=== PATIENT | male | born 1940 | race Caucasian/White ===

== ENCOUNTER 2020-07-27 17:23 | Inpatient (IN) | payer OTHER ==
[~2020-07-27] VITALS: Ht 170.2 cm; Wt 66.9 kg
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
[~2020-07-27 17:23] MED LIST: ACETAMINOPHEN325 MG PO; BACTRIM DS TAB1 EAC1 PO; CEFDINIR300 MG PO; DIVALPROEX SOD125 MG PO; GLUCERNA1 EACH PO; IPRAT-ALBUT 0.5-3 ML PO; KEFLEX500 M1 PO; KRISTALOSE20 GM PO; LAXATIVE5 M1 PO; LORATIDINE 10 M10 M1 PO; MILK OF MA2400 MG/11 PO; MYLANTA MAXIMU355 ML PO; NORVASC 2.5 MG2.5 M1 PO; OCUSOFT LID SC1 EAC1 TOP; PROBIOTIC1 EAC7 PO; SEROQUEL 100 M100 M1 PO; SEROQUEL 25 MG25 MG PO; TRAZODONE 150150 M1 PO; TRAZODONE HCL50 MG PO; VITAMIN B-121000 MC2 PO; ZOFRAN4 MG PO; ZYPREXA5 MG PO
[2020-07-27 17:31] VITALS: BP 118/64
[2020-07-27 18:24] LABS: BASOPHILS 0.6 % (0.0-2.0); EOSINOPHILS 3.7 % (0.0-3.0); HEMATOCRIT 37.3 % (42.0-52.0); HEMOGLOBIN 12.5 gm/dL (14.0-18.0); LYMPHOCYTES 28.1 % (24.0-44.0); MCH 32.5 pg (26.0-34.0); MCHC 33.6 g/dL (28.0-37.0); MCV 96.9 fL (80.0-100.0); MONOCYTES 6.2 % (1.0-8.0); PLATELET COUNT 186 thou/uL (150-400); POLYS 61.4 % (36.0-66.0); RBC 3.85 mil/uL (4.50-6.00); RDW 14.8 % (10.5-14.5); WBC 8.2 thou/uL (4.0-11.0)
[2020-07-27 18:33] LABS: ANION GAP 8 mmol/L (7-16); BUN 21 mg/dL (7-18); CALCIUM 8.7 mg/dL (8.5-10.1); CHLORIDE 108 mmol/L (98-107); CO2 26 mmol/L (21-32); GLUCOSE 108 mg/dL (74-106); POTASSIUM 3.9 mmol/L (3.5-5.1); SODIUM 142 mmol/L (136-145)
[2020-07-27] MEDS ORDERED: SEROQUEL 25 MG25 MG PO (18:33)
[2020-07-27] MEDS ORDERED: IBUPROFEN 400400 M1 PO (18:35)
[2020-07-27] MEDS ORDERED: HALDOL 0.5 MG0.5 MG PO (18:41)
[2020-07-27] MEDS ORDERED: DEPAKOTE SPRIN125 MG PO (18:41)
[2020-07-27 18:46] LABS: ALBUMIN 2.8 g/dL (3.4-5.0); MAGNESIUM 2.1 mg/dL (1.8-2.4); SALICYLATE 3.3 mg/dL (2.8-20.0); SGOT 12 U/L (15-37); SGPT 11 U/L (30-65); TOTAL BILIRUBIN 0.3 mg/dL (0.2-1.0); TOTAL PROTEIN 6.4 g/dL (6.4-8.2); TROPONIN-I <0.06 ng/mL (<0.06)
[2020-07-27 19:15] LABS: URINE BILIRUBIN NEGATIVE (Negative); URINE BLOOD NEGATIVE (Negative); URINE CLARITY CLEAR; URINE COLOR YELLOW; URINE GLUCOSE-RANDOM* NEGATIVE (Negative); URINE KETONES NEGATIVE (Negative); URINE LEUKOCYTES-REFLEX NEGATIVE (Negative); URINE NITRITE-REFLEX NEGATIVE (Negative); URINE PROTEIN (DIPSTICK) NEGATIVE (Negative); URINE SPECIFIC GRAVITY 1.015 (1.005-1.035); URINE UROBILINOGEN 0.2 E.U./dl (0.2-1.0)
[2020-07-27 19:23] LABS: AMP/METHAMP Negative (Negative); BARBITURATES Negative (Negative); BENZODIAZEPINES Negative (Negative); COCAINE Negative (Negative); METHADONE Negative (Negative); OPIATES Negative (Negative); PCP Negative (Negative)
[2020-07-28 18:00] VITALS: BP 142/51
[2020-07-28 18:51] VITALS: BP 139/59
--- NOTE | 2020-07-28 19:03 | NUR ---
PATIENT ARRIVED BY WC FROM THE ED TO [facility] AT 1830. PATIENT WAS PLACED IN A DURGA RECLINER CHAIR WITH CHAIR ALARM IN PLACE AND NAME AND FALL RISK BANDS APPLIED. PATIENT ATE SUPPER BEFORE COMING FROM ED. HE DENIES PAIN. PATIENT A/0X1. PATIENT IS ASSIST X 1-2 WITH TRANSFER. WEAK WITH UNSTEADY GAIT WHEN STANDING. VSS. PATIENT REPORT GIVEN TO NIGHT STAFF COMING ON TO FINISH ADMIT. MED RECONCILLATION DONE. CONTINUING TO MONITOR.
--- NOTE | 2020-07-29 04:44 | NUR ---
Assumed care of patient this pm shift. Patient is a new admit to this floor. Patient is confused, alert and oriented to self only. Patient can answer questions but needs redirection to stay focused. Patient states that he needs help getting out of the bath tub all while laying in bed. Patient denies si. Patient states that he does have pain where his catheter is inserted. Patient was educated not to pull on hensley catheter as this could cause pain. Patients assessment shows no signs of acute distress. Patient appears to have flight of ideas and bounces from one topic to another. RN described the goals of this unit and educated patient on the importance of medication adherence. Patient did not voice any logical concerns at this time and is delusional as to where he is at. We will continue to monitor per hospital policy.
--- NOTE | 2020-07-29 05:00 | NUR ---
Assumed care of patient this pm shift. Patient was recently admitted to [facility]. Patient was sitting in the mileu at the time of assessment. Patient is very confused, alert and oriented to self only. Patient denies pain. Patient denies si. Patient is considered a falls risk per carter fall scale. Patient takes medications crushed in ice cream and took medications with no problems. Patient repeatedly asked for ice cream and cigarettes. Patient was educated that this is a no smoking facility but a patch or gum could be ordered by the prescribing doctor. Patient did not voice any logical concerns at this time. Patients assessment shows no signs of acute distress at this time. We will continue to monitor per hospital policy.
[2020-07-29 07:00] VITALS: BP 123/81
--- NOTE | 2020-07-29 12:00 | NUR ---
Assumed care 0700. Sedated most of the AM until before lunch. At one attempt to awaken briefly was conscious then returned to sleep stating he wanted to sleep and was refusing meds. Later he tried to get up on his own with bed alarm sounding. Was found sitting on the side of the bed trying to stand and very wobbily on his feet. He was assisted to the toilet with two staff, could not lean over the toilet to urinate so he voided on the floor clear yellow urine. He was changed, placed in recliner and taken tot dining room. He ate well for lunch=90%. He continually asked this staff about where was his roast beef as that was the main thing he liked with mashed potatoes and cheesecake.
--- NOTE | 2020-07-29 16:00 | NUR ---
After lunch he wanted to smoke and could not be convinced that no cigarettes would be smoked in the hospital. He tried to get out of the chair sideways. Eventually a lap odette was needed as he was trying to get out of the chair. He could see distances but seemed to struggle with items close up with his vision. Due to agitation of wanting to smoke, go to the [employer] park, get out of here, get up and walk around though unsteady on his feet, unconsolable, unbribable was given LUZ Rodriguez approximately 1408 IM route right Quad--note it did not come up on eMAR due to Bobby Dasilva NP writing the order later. That took effect in about 20 minutes. He was set in front of a baseball game which he liked and eventually went to sleep there.
[2020-07-29 20:35] VITALS: BP 158/49
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
--- NOTE | 2020-07-30 07:57 | EKG ---
[facility] [place] [address] ELECTROCARDIOGRAM REPORT Name: ZARI CALLES Room #: [facility] ADM IN M.R.#: [id number] Admission: 07/27/20 Attend Phys: Yaakov Armstrong DO Discharge: Date of : 40 Report #: [id number] THIS REPORT FOR: cc: Suhas Mayer MD, Dennis R MD Lundgren,Julio César Keane MD [facility] THIS REPORT FOR: //name// [facility] ED Test Date: 2020-07-27 Test Time: 18:57:36 Pat Name: ZARI CALLES Department: Room: [facility] Gender: M Bagger Meat: terrell : 1940 Requested By: Grant Rodriguez Order Number: [id number] MD: Julio César Bill Measurements Intervals [place] Rate: 55 P: 55 AL: 139 QRS: 58 QRSD: 85 T: QT: 543 QTc: 520 Interpretive Statements Sinus rhythm Nonspecific T wave abnormality Prolonged QT interval Baseline wander in lead(s) V5 No previous ECG available for comparison Electronically Signed On 07-30-2020 7:57:09 CDT by Julio César Bill [email or web address] <ELECTRONICALLY SIGNED> By: Julio César Bill MD, FACC 07/30/20 0757 56 56 Julio César Bill MD, [facility] /EPI
[2020-07-30 08:49] VITALS: BP 137/46
--- NOTE | 2020-07-30 13:20 | NUR ---
Yvette spoke with Janeth from [facility], . Yvette gave a quick update on the Pt. Janeth stated she will be the direct contact for this Pt while on this unit. Janeth asked any updates be faxed to [phone]
[2020-07-30 20:07] VITALS: BP 129/64
[2020-07-30 23:17] VITALS: BP 129/64
--- NOTE | 2020-07-31 02:57 | NUR ---
Assumed care of patient this pm shift. Patient sitting in shadia chair in the mileu. Patient is very irritable and spoke in a derogitory manner to the aides. Patient is alert and oriented to self only. Patients affect is blunted. Patient takes medications crushed in pudding. Patient denies pain. Patient denies hi/si. Patient is not continent of bowel or bladder and requires assist x1-2. Patients assessment shows no signs of acute distress. Patient did not voice any logical concerns this evening. Patient is considered a falls risk per carter falls scale and is wearing a yellow shirt. We will continue to monitor per hospital policy.
[2020-07-31 07:25] VITALS: BP 108/47; BP 138/78
--- NOTE | 2020-07-31 07:40 | EKG ---
[facility] [place] [address] ELECTROCARDIOGRAM REPORT Name: ZARI CALLES Room #: 523B ADM IN M.R.#: [id number] Admission: 07/27/20 Attend Phys: Yaakov Armstrong DO Discharge: Date of : 40 Report #: [id number] THIS REPORT FOR: cc: Suhas aMyer MD, Dennis R MD Lundgren,Julio César Keane MD [facility] ~ THIS REPORT FOR: //name// [facility] Test Date: 2020-07-30 Test Time: 11:25:29 Pat Name: ZARI CALLES Department: Room: [facility] Gender: M Ribbon Lapper Tender: BARRERA : 1940 Requested By: Yaakov Armstrong Order Number: [id number] MD: Julio César Bill Measurements Intervals [place] Rate: 58 P: HI: QRS: 65 QRSD: 104 T: 84 QT: 487 QTc: 479 Interpretive Statements Probable atrial flutter. Baseline artifact limits rhythm interpretation Nonspecific ST segment abnormality Borderline prolonged QT interval Compared to ECG 07/27/2020 18:57:36 Atrial flutter has replaced sinus rhythm Electronically Signed On 07-31-2020 7:40:24 CDT by Julio César Bill [email or web address] <ELECTRONICALLY SIGNED> By: Julio César Bill MD, [facility] 07/31/20 0740 1125 1125 Julio César Bill MD, FAC /EPI
--- NOTE | 2020-07-31 08:14 | NUR ---
PT SITTING IN DINING ROOM. PT WANTING A CIGARETTE. TOLD PT THAT HE HAS NICOTINE PATCH ON. PT ORIENTED TO SELF. PT STATED HE WANTS HIS SHOES ALSO. PT USUALLY USES A W/C TO TRAVEL.
[2020-07-31 08:40] VITALS: BP 108/47
[2020-07-31 19:19] VITALS: BP 111/38
[2020-07-31 23:33] VITALS: BP 111/38
--- NOTE | 2020-08-01 04:57 | NUR ---
Assumed care of client this pm shift. Patient in his bed during assessment. Client is confused, alert and oriented to self only. Affect is blunted. Client takes medications crushed in pudding but was resistant this evening. Client does not appear to be in any pain. Patient is considered a falls risk. Patient ambulates via wheelchair. Assessment shows no signs of acute distress. Patient is not continent of bowel or bladder. Patient was very sleepy this evening and did not respond to the hi/si questions. We will continue to monitor per hospital protocol.
[2020-08-01 07:26] VITALS: BP 123/63
--- NOTE | 2020-08-01 09:59 | NUR ---
Assumed care 0700. Patient oriented to his name. Continues to ask for his shoes. Self fed breakfast. c/o tailbone pain. So far has been calm and cooperative though a little antsy to leave dayroom before RT Group. Compliant with crushed meds.
--- NOTE | 2020-08-01 18:00 | NUR ---
Shoes were applied to patient's feet per his request. Brief was soaked. Pericare with Z Guard applied to reddened buttocks, skin intact. Compliant with medications. Olegario lund.
--- NOTE | 2020-08-02 02:51 | NUR ---
PATIENT ASSESSED AND IS ALERT X 3. SKIN WARM AND DRY. RESP EVEN AND UNLABORD. WANTS HIS SHOES ON WHEN HE GETS UP TO WALK. ABDOMEN SOFT AND BS+4. SITS IN DURGA CHAIR WITH LAP YUNG ON. VS STABLE. IN CONT OF B&B. WEARS BREIFS. BOTTOM IS SORE AND WE USED ZGUARD ON IT. MEDS CRUSED AND TAKEN WELL TONIGHT. NO SI/HI/AH/VH/ NOTED THIS SHIFT. WILL HAVE A VALPORIC LEVEL DONE ON THURSDAY EARLY AM ON 08/03/20 AT 0600. HAS BEEN SLEEPING WELL. CONT PLAN OF CARE. NO AGGRESSIVE BEHAVIORS NOTED.
[2020-08-02 07:46] VITALS: BP 114/47
--- NOTE | 2020-08-02 09:23 | NUR ---
0700 ASSUMED CARE OF PATIENT, PATINE LYING IN BED AT THAT TIME. 0840 PATIENT CONTINUES TO LAY IN BED WITH EYES CLOSED. PATIENT TAKES MEDICATION CRUSHED IN APPLESAUSE WITHOUT DIFFICULTY. PATIENT REFUSED NICOTINE PATCH. PATIENT REFUSING TO TALK TO ADMINISTRATIVE STAFF SUPERVISOR AT THIS TIME.
--- NOTE | 2020-08-02 11:38 | NUR ---
TREE spoke with Janeth from [facility] concerning Pt updates and pending discharge for 08-07-2020. Janeth request updated notes be sent to the facility. Fadi would like to set up transportation on the day of discharge TREE faxed updates
--- NOTE | 2020-08-02 15:22 | NUR ---
RT Progress Note- Babak's participation in the milieu and recreation groups has been fairly minimal. He naps frequently. He does not often socialize in the milieu. He exhibits some restless behavior- frequently switching chairs during morning groups, but he is easily redirected to return to seated position. He has not displayed any aggression during RT interaction.
[2020-08-02 19:44] VITALS: BP 103/76
[2020-08-02 21:38] VITALS: BP 103/76
--- NOTE | 2020-08-03 02:49 | NUR ---
Assumed care of patient this pm shift. Patient laying on the couch in the mileu for assessment. Patients affect is blunted. Patient is irritable. Patient takes medications crushed in pudding. Patient is considered a falls risk and has on a yellow shirt. Patient ambulates via wheel chair and can use a walker. Patients assessment shows no signs of acute distress. Patient did not voice any concerns for the rn this shift. Patient is incontinent. We will continue to monitor per hospital policy.
--- NOTE | 2020-08-03 15:48 | NUR ---
0700 ASSUMED CARE OF PATIENT. PATIENT COMPLAINED OF PAIN IN BUTT. ASSESSED NO REDNESS OR OPEN AREA FOUND. SMALL SMEAR OF BROWN STOOL. CLEANED WITH ZGUARD APPLIED. UP OUT OF ROOM WITH WALKER. TIRES WHEN WALKING TO ROOM. HAS SHUFFLING GAIT BUT STEADY. EATING MEALS IN DAYROOM AREA. RETURNING TO ROOM TO REST BETWEEN MEALS. TOOK NAP MIDMORNING. NURSING ASSESSMENT COMPLETED LUNG SOUNDS CLEAR. NO COUGHING. BOWEL SOUNDS PRESENT. NO ABDOMINAL TENDERNESS. CHECKED FOR PEDAL EDEMA NONE PRESENT. COOPERATIVE. DIFFICULT TO ASSESS MENTAL STATUS WAS MUMBLING AND DIFFICULT TO UNDERSTAND. ADHERENT WITH MEDICATIONS. CRUSHING MEDICATIONS. PATIENT STATED WAS TAKING TOO MUCH MEDICINE. 1400 PATIENT COMPLAINED OF RECTAL PAIN. ZGUARD APPLIED. NO REDNESS NOTED BUT PATIENT HAS HEMORRHOIDS. 1600 STTING UP IN CHAIR IN DAYROOM. COMPLAINED OF RECTAL PAIN AGAIN.
[2020-08-03 19:49] VITALS: BP 121/40
--- NOTE | 2020-08-04 05:07 | NUR ---
Assumed pt's care this pm shift. Pt oriented to self. Forgetful. Pt was in his bed at time of assessment. Pt voiced having pain in his rectum as well as all over his body. Pt rated pain 8/10. Dr Armstrong paged to obtain orders for pain med. Pt given tramadol for pain. Tech voiced that pt's O2 sat was at 64%. Nursing went in to check on pt, raised HOB, and rechecked the O2 sat. Pt was at 97% O2 at that time. Nursing rechecked pt's O2 sat this am, pt satting @ 96%. Pt took meds whole, came out to the dayroom for an ice cream, hung out for some hours and headed to bed. Pt currently in bed, sleeping. Will continue to monitor.
[2020-08-04 07:45] VITALS: BP 104/51
--- NOTE | 2020-08-04 09:19 | NUR ---
ASSUMED CARE OF PATIENT, PATIENT IN BED AT THAT TIME. 0720 PATIENT TO DAYROOM FOR BREAKFAST, SITS AT TABLE. PATIENT ATE 50% OF MEAL WITH COFFEE X2 THEN ASKS TO GO BACK TO ROOM. PATIENT NOTED SITTING ON ONE SIDE PATIENT C/O HEMMOROID PAIN. 0900 PATIENT AMB TO ROOM USING WALKER WITH STANDBY ASSIST. PATIENT NOTED WITH SOILED BRIEF, LANDSCAPE ARCHITECTURE TEACHER ASSISTED PATIENT TO BATHROOM TO CHANGE PATIENT. PATIENT YELLS OUT C/O PAIN. SPOTS OF BLOOD NOTED TO BRIEF. NO HEMMOROIDS NOTED, OINTMENT APPLIED AND ASSISTED PATIENT TO BED. PATIENT HAVING DIFFICULTY MOVING DUE TO PAIN. TYLENOL 650MG PO GIVEN FOR PAIN AT 0915. PATIENT REMAINS IN BED LYING ON HIS SIDE.
[2020-08-04 15:18] LABS: HEMATOCRIT 34.5 % (42.0-52.0); HEMOGLOBIN 11.3 gm/dL (14.0-18.0); MCH 32.1 pg (26.0-34.0); MCHC 32.8 g/dL (28.0-37.0); RBC 3.52 mil/uL (4.50-6.00); RDW 14.8 % (10.5-14.5); WBC 10.9 thou/uL (4.0-11.0)
[2020-08-04 15:26] LABS: CALCIUM 8.4 mg/dL (8.5-10.1); CREATININE 0.9 mg/dL (0.7-1.3); POTASSIUM 4.3 mmol/L (3.5-5.1)
--- NOTE | 2020-08-04 18:16 | NUR ---
1625 PATIENT TO DAYROOM FOR DINNER, PATIENT SITS AT TABLE WITH PILLOW UNDER BOTTOM. PATIENT C/O PAIN RATING A 7. TRAMADOL 50MG PO GIVEN AT 1630. PATIENT SITS IN DAYROOM TILL 1745 THEN TO ROOM X 1 STANDBY ASSIST WITH SUPERINTENDENT METERS. PATIENT LAYS IN BED AND LAYS ON SIDE. BRIEF NOTED WITH SCANT AMOUNT OF BLOOD TINGED DRAINAGE. PATIENT BOTTOM CLEANED WITH WARM CLOTH. SMALL OPENING NOTED ABOVE RECTUM AREA WITH SCANT AMOUNT OF DRAINAGE. CULTURE OBTAINED AND SENT TO LAB. DR VILLEGAS CALLED AND NOTIFIED OF FINDING. PHONE ORDER OBTAINED FOR CULTURE. BOARDERED DRESSING APPLIED, PATIENT IN BED WITHOUT BRIEF AT THIS TIME.
[2020-08-04 19:52] VITALS: BP 110/41
--- NOTE | 2020-08-05 06:04 | NUR ---
Assumed pt's care this pm shift. Pt oriented to self. Forgetful. Pt cooperative with assessment. Took meds whole without issues. Pt slept most of shift. PRN tylenol given for generalized pain. No BM noted this shift. Pt still in bed, sleeping. Will continue to monitor.
[2020-08-05 07:30] VITALS: BP 140/60
--- NOTE | 2020-08-05 09:30 | NUR ---
0700 ASSUMED CARE OF PATIENT, PATIENT IN BED AT THAT TIME. 0820 PATIENT OUT TO DAYROOM WITH ASSIST X1. PATIENT SITTING AT TABLE, SITTING ON A PILLOW FOR COMFORT. MEDICATIONS GIVEN WHOLE WITHOUT DIFFICULTY TRAMADOL 50 MG PO GIBEN AT 0810 FOR BUTTOCKS PAIN. AFTER BREAKFAST PATIENT TO ROOM WITH ASSIST OF REHABILITATION WORKER. REHABILITATION WORKER OFFERS TO ASSIST PATIENT TO BATHROOM TO VOID. PATIENT REFUSES THE NEED TO VOID. PATIENT TO BED EXIT BOOTH AGENT TO ROOM A FEW MIN LATER. PATIENT INCONTINENT, PATIENT WET. PATIENT CHANGED WITH ASSIST OF REHABILITATION WORKER. WOUND TO BOTTOM CLEANED WITH NS AND DRESSING CHANGED. OLD DRESSING REMOVED, NOTED WITH DARK DRAINAGE TO MIGUEL ÁNGEL SMALL AMT. PATIENT POSITIONED TO RIGHT SIDE IN BED TO REST. PATIENT HAS DIFFICULTY SITTING UP DUE TO PAIN. WILL CONTINUE TO OBSERVE.
--- NOTE | 2020-08-05 10:33 | NUR ---
TREE faxed updates to Vignesh.
--- NOTE | 2020-08-05 11:09 | NUR ---
1045 DR VILLEGAS HERE TO SEE PATIENT. PATIENT POSITIONED TO RIGHT SIDE, DRESSING REMOVED WITH SCANT AMOUNT OF DRAINAGE NOTED. STAGE II DECUBITIS ABOVE RECTUM NOTED WITH A POSSIBLE BOIL NEAR DECUBITIS. SCANT AMOUNT OF DRAINAGE. PATIENT JUMP WITH PAIN WHEN TOUCHED. PATIENT REPOSITIONED TO LEFT SIDE PILLOW PLACED BEHIND BACK. 3X3 BOARDERED DRESSING APPLIED TO BUTTOCKS. ORDERS RECIEVED BY DR ESPARZA AND DR VILLEGAS. WILL CONTINUE TO OBSERVE.
--- NOTE | 2020-08-05 17:16 | NUR ---
1700 PATIENT REPOSITIONED IN BED FOR DINNER. PATIENT EATING IN BED DUE TO PAIN TO BUTTOCKS. ENCOURAGING FLUIDS. DRESSING TO BOTTOM DRY AND INTACT.
[2020-08-05 19:31] VITALS: BP 135/45
[2020-08-05 21:13] VITALS: BP 135/45
--- NOTE | 2020-08-06 02:05 | NUR ---
Assumed care of patient this pm shift. Patient in bed during assessment. Patient is not in any visible pain but does have pain from the rectal area when he is moved or moves himself in bed. Lidocaine was put in the area where patient is having pain. This seemed to help. Patient is calm and cooperative and takes medications crushed in pudding. Patient is considered a falls risk and has on a yellow shirt. Patient ambulates via wheelchair. Patients assessment shows no signs of acute distress. Patient did not voice any new concerns to RN. We will continue to monitor per hospital policy.
[2020-08-06 07:15] VITALS: BP 144/67
--- NOTE | 2020-08-06 15:23 | NUR ---
CONTINUES TO REPORT SIGNIFICANT RECTAL PAIN WHEN SAT UP BRIEFLY THIS AM AT BREAKFAST-ASSISTED BACK TO BED WITH 2 STAFF WAS LOUD AND YELLING OUT IN PAIN WHEN UP-DOES APPEAR COMFORTABLE IN BED WHEN POSITIONED ON SIDE-WOUND CARE MD HERE AND RECTAL WOUND ASSESSED-REPORTED TO NOT BE PRESSURE RELATED-BARRIER CREAM APPLIED PER ORDERS AND GAUZE SPONGES PLACED-HELD IN PLACE BY BRIEF-SMALL AMOUNT SERROUS DRAINAGE NOTED-ULTRAM 50MG GIVEN PO PRN AT APPROX. 0930 WITH NOTED GOOD RESULTS.
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
--- NOTE | 2020-08-06 18:46 | NUR ---
NOTED DURING INCONTINENT CARE TO BE WARM TO TOUCH-AXILLARY TEMP 100.1-PT IS ALERT AND RESPONSEIVE-ATTEMPTING TO GET OUT OF BED ON OWN SETTING OFF BED ALARM- IS NOTED TO HAVE CRACKLES IN LEFT LOWER LUNG WHICH IS CHANGE FROM AM ASSESSMENT. DR. HERRERA NOTIFIED-ORDERS RECEIVED.
[2020-08-06 19:19] LABS: BE(vivo) 1.6 mmol/L (-2 to +3); HCO3 25.7 mmol/L (22.0-26.0); PCO2 38.4 mmHg (35.0-45.0); PO2 53.1 mmHg (80.0-100.0); pH 7.443 (7.360-7.450); sO2 88.9 % (92.0-98.0)
[2020-08-06 20:00] VITALS: BP 144/47
[2020-08-06 20:35] VITALS: BP 166/93
--- NOTE | 2020-08-06 20:48 | NUR ---
Assumed pt's care this pm shift. Upon assumption, Day RN informed nursing that pt's temp this evening is 101.1. Dr Armstrong was notified. Stat ABG showed critically low PO and low O2 sat. Pt placed on 2L O2 with a siiter in place per unit's protocol. Spoke with Dr Armstrong and he voiced transfering pt to 4S. Notified H/S and she voiced no bed availability on 4S. H/S to clarify with Dr Armstrong and Dr Bergman. H/S informed nursing that pt will be transferred to 3W. Report given to Mallika SeguraW RN. New vitals obtained and charted prior to transfer. O2 92% on 2L. Temp 100.8. Pt's night meds given prior to transfer per 3W RN's request. PRN tylenol was also given to help with fever. Dr Armstrong notified that pt have left the unit with belongings.
== END 2020-08-06 20:50 | DRG 57 ==
LOC: ER 17:23 → SBH 21:02 → EROBS 21:02 → SBH 21:02
PROVIDERS: Emergency Medicine; Hospitalist; ADMIT Psychiatry & Neurology Psychiatry; ATTEND Psychiatry & Neurology Psychiatry
DX: G30.9 Alzheimer's disease, unspecified (principal); F01.51 Vascular dementia, unspecified severity, with behavioral disturbance; F02.81 Dementia in other diseases classified elsewhere, unspecified severity, with behavioral disturbance; F23 Brief psychotic disorder; L05.01 Pilonidal cyst with abscess; K21.9 Gastro-esophageal reflux disease without esophagitis; F31.9 Bipolar disorder, unspecified; J44.9 Chronic obstructive pulmonary disease, unspecified; R62.7 Adult failure to thrive; Z20.828 Contact with and (suspected) exposure to other viral communicable diseases; R09.02 Hypoxemia; S31.501A Unspecified open wound of unspecified external genital organs, male, initial encounter; X58.XXXA Exposure to other specified factors, initial encounter; Y93.89 Activity, other specified; Y92.89 Other specified places as the place of occurrence of the external cause; Y99.8 Other external cause status; Z74.01 Bed confinement status; Z68.23 Body mass index [BMI] 23.0-23.9, adult; Z79.899 Other long term (current) drug therapy
CPT/HCPCS: 10880

== ENCOUNTER 2020-08-06 19:37 | Inpatient (IN) | payer OTHER ==
[~2020-08-06] VITALS: Ht 175.3 cm; Wt 66.9 kg
[~2020-08-06 19:37] MED LIST changes: +DEPAKOTE SPRIN125 MG PO; +HALDOL 0.5 MG0.5 MG PO; +IBUPROFEN 400400 M1 PO
[2020-08-06 21:00] VITALS: BP 133/56
[2020-08-06 22:05] LABS: HEMATOCRIT 36.9 % (42.0-52.0); HEMOGLOBIN 12.1 gm/dL (14.0-18.0); MCH 31.7 pg (26.0-34.0); MCHC 32.7 g/dL (28.0-37.0); MCV 96.8 fL (80.0-100.0); RBC 3.81 mil/uL (4.50-6.00); RDW 14.7 % (10.5-14.5); WBC 5.2 thou/uL (4.0-11.0)
[2020-08-06 22:28] LABS: CREATININE 1.5 mg/dL (0.7-1.3); POTASSIUM 4.3 mmol/L (3.5-5.1)
--- NOTE | 2020-08-06 23:20 | NUR ---
Admission hstorya and assessments completed. Careplan initiated. High fall risks, fall precautions in place. IVF fluids and IV antibiotics started.
[2020-08-07 00:01] VITALS: BP 104/53
--- NOTE | 2020-08-07 02:19 | NUR ---
ASSUMED CARE OF PT @2300. PT ALERT TO SELF CONFUSED WITH HX OF DEMENTIA. 3L OF O2 99% IV INTACT WITH IVF. PT INCONTINENT. FALL PREC IN PLACE AND WILL CONT TO MONITOR.
[2020-08-07 04:10] VITALS: BP 119/42
[2020-08-07 04:27] VITALS: BP 104/41
[2020-08-07 05:07] LABS: HEMATOCRIT 38.3 % (42.0-52.0); HEMOGLOBIN 12.2 gm/dL (14.0-18.0); MCH 31.6 pg (26.0-34.0); MCHC 31.8 g/dL (28.0-37.0); MCV 99.1 fL (80.0-100.0); RBC 3.86 mil/uL (4.50-6.00); RDW 14.8 % (10.5-14.5); WBC 4.7 thou/uL (4.0-11.0)
[2020-08-07 05:13] LABS: CALCIUM 8.1 mg/dL (8.5-10.1); CREATININE 1.2 mg/dL (0.7-1.3); MAGNESIUM 2.1 mg/dL (1.8-2.4); POTASSIUM 4.4 mmol/L (3.5-5.1)
[2020-08-07 07:23] VITALS: BP 151/34
--- NOTE | 2020-08-07 15:09 | NUR ---
INITIAL ASSESSMENT: Received consult. TREE reviewed chart and spoke with nursing and attending physician. Pt was admitted from the [facility] unit yesterday due to fever and shortness of air. Pt placed in Enhanced Isolation to r/o COVID-19. Pt is on 6L of O2. Pt is on IV abx and IV steroids. Pt was to discharge back to [facility] LT facility today from [facility]. TREE spoke with Janeth at [facility] and provided updated. Confirmed plan for pt to return to LTC. planner/scheduler to fax clinical info to the facility for review. TREE left voice message for pt's son, Cabrera, to provide update and discuss discharge plan. TREE is following to assist as needed with discharge planning.
[2020-08-07 16:01] VITALS: BP 121/46
--- NOTE | 2020-08-07 18:26 | NUR ---
ASSUMED PATIENT CARE AT 0700. ALERT. CONFUSED. CALM. AFEBRILE. VSS. INCONTIUNE. CONVID TEST NEGATIVE. SLOWLY TOWARDS POC GOALS.
[2020-08-07 19:34] VITALS: BP 125/45
--- NOTE | 2020-08-08 03:44 | NUR ---
Pt. very impulsive at beginning of shift. Bed alarm on for safety. Oriented to person only and frequently reoriented. Maintaining O2 sat up to 100% on 2L/NC. Pt. takes off O2 cannula at times. Used bedpan and had small hard bm. Tried to place external cath but he took it off. He did ask for help to use urinal. Does not remember to use call light but hollers for help. Took HS meds with pudding. Assisted to reposition and made comfortable on the bed. He slept well since. Afebrile.
[2020-08-08 04:28] VITALS: BP 116/41
--- NOTE | 2020-08-08 07:47 | NUR ---
GOT REPORT FROM ALEC AT 0435 08/08/2020. PT ARRIVED TO FLOOR JUST AFTER 0500. PT IS ALERT TO SELF. NO PICTURE ON CHART FOR DRAINED WOUND IN BETWEEN BOTTOM AND ANUS. PT REFUSES VITALS AND MEDICATION. PT IS IN ROOM SETTLED. GAVE REPORT TO ELAN.
[2020-08-08 07:50] VITALS: BP 106/39
--- NOTE | 2020-08-08 12:11 | NUR ---
PHYSICIAN PROG NOTES INDICATED THAT RETURN TO LTC FAILITY WITH POSSIBLE HOSPICE SERVICES WOULD BE APPROPRIATE PT IT REFUSING CARES AND FOOD AND DRINK CURRENTLY. CM CALLED AND SPOKE WITH PT'S SON THIS AM HE INDICATED THAT PHYSICIAN HAD SPOKEN TO HIM BRIEFLY ABOUT HOSPICE SERVICES YESTERDAY. CM EXPLAINED THEM A LITTLE AGAIN. HE INDICATED THAT HE THOUGHT HE WOULD BE RECEPTIVE TO ELECTING HOSPICE SERVICES UPON PT'S RETURN TO [facility] AND WAS REFEPTIVE TO CM REACHING OUT TO FACILITY TO SEE IF THEY HAVE A PREFERRED PROVIDER. DR. RAMACHANDRAN TO CONSULT DR. ANDRADE AND INDICATED POTENTIAL DC TOMORROW OR THURSDAY BACK TO FACILITY. CM TO FOLLOW INDICATED WITH DC PLANNING.
--- NOTE | 2020-08-08 15:26 | NUR ---
FAXED CLINICAL UPDATE TO [facility] SPOKE WITH AIDEN IN ADM SHE RECEIVED UPDATE. DP TO FOLLOW.
[2020-08-08 19:28] VITALS: BP 129/67
--- NOTE | 2020-08-08 19:48 | NUR ---
Assumed pt care this am refused all oral meds and would refuse blood sugars in the pm. Combative for most of the plan of care, refused to for wound care to come and assess and clean his would. Was able to have a bm in the afternoon on the commode. Refused meals in the am, kept lunch tray til late pm pt had his meals, Pt needs assists. Very confused and forgetful, POC followed, fall precautions in place. Incontinent of both bowel and bladder. Endorsed to the night nurse.
--- NOTE | 2020-08-09 07:35 | NUR ---
PROGRESS PT AWAKE AND ALERT YELLING OUT MOST OF THE EVENING DID COOPERATE AND TAKE MEDICATIONS CRUSHED AND PLACED IN PUDDING. TELE INTACT READING SA WITH RATES IN 50'S TO UPPER 60'S. PULLS IT OFF FREQUENTLY. ACCUCHECK 173 AT HS, O2 AT 2 LITERS IV TO LF INTACT AND INFUSING D51/2NS@75CC/HR GETTING INTERMITTENT ANTIBIOTICS INCONTINENT OF BOWEL AND BLADDER UP TO BSC WITH NO BM. PT SLEPT QUIETLY AFTER 1 AM FOR THE REMAINDER OF THE SHIFT
[2020-08-09 10:21] VITALS: BP 148/61
--- NOTE | 2020-08-09 14:44 | NUR ---
[facility] SAW PT THIS AM AND INDICATED THAT THEY WERE ORDERING A UA RELATED TO INCREASED AGITATION. DR. ANDRADE TO CONTACT SON TO DISCUSS ELECTING POSSIBLE HOSPICE SERVICES UPON DISHCARE HOME. CM TO FOLLOW INDICATED WITH DC PLANNING.
[2020-08-09 16:15] VITALS: BP 125/48
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
[2020-08-09 20:39] VITALS: BP 140/53
[2020-08-09 22:26] LABS: URINE BILIRUBIN NEGATIVE (Negative); URINE BLOOD NEGATIVE (Negative); URINE CLARITY CLEAR; URINE COLOR YELLOW; URINE GLUCOSE-RANDOM* NEGATIVE (Negative); URINE KETONES NEGATIVE (Negative); URINE LEUKOCYTES NEGATIVE (Negative); URINE NITRITE NEGATIVE (Negative); URINE PROTEIN (DIPSTICK) NEGATIVE (Negative); URINE SPECIFIC GRAVITY 1.025 (1.005-1.035)
--- NOTE | 2020-08-10 03:40 | NUR ---
Assumed pt care at 1900. A/OX1,screaming out loud and sliding self to the edge of the bed stating "I want to go outside for a cigarrette and coffee" [employer] provided coffee for pt thickened as ordered and pt very happy about it. Took HS meds w/o any problems in pudding. UA obtained via clean catch w/o problems and sent to lab;negative for UTI. IVF infusing w/o problems via LFA. Pt on telemetry HR irregular and bradycardia, pt is asymptomatic. Fall precautions in place,will continue to monitor pt. Incontinent of bladder.
[2020-08-10 07:22] VITALS: BP 133/56
--- NOTE | 2020-08-10 07:36 | NUR ---
PATIENT CONTINUING TO BE COMBATIVE, IMPULSIVE, NOT FOLLOWING COMMANDS AND REFUSING CARE. PER DR. ANDRADE NOTE, FAMILY HAS DECIDED FOR PATIENT TO TRANSFER BACK TO FACILITY WITH HOSPICE CARE. OT TO SIGN OFF AT THIS TIME. PLEASE RECONSULT IF NEEDED.
[2020-08-10] MEDS ORDERED: DEPAKOTE 250MG250 M1 PO (10:18)
[2020-08-10] MEDS ORDERED: SEROQUEL 100 M100 M1 PO (10:19)
[2020-08-10] MEDS ORDERED: KEFLEX500 M1 PO (10:21)
--- NOTE | 2020-08-10 14:01 | NUR ---
ASSUMED CARE OF PATIENT AT SHIFT CHANGE. ASSESSMENT CHARTED. REFUSED PO AM MEDS; IV MEDS ADMINISTERED W ASSIST FROM STUDENT NURSE. PATIENT MOOD IMPROVED GREATLY DAY WENT ON. VSS. PATIENT TOLERATED NECTAR THICK COFFEE WELL W NO ISSUES. PATIENT VOICES NO NEEDS AT THIS TIME; SCHEDULED TO DISCHARGE BACK TO FACILITY AT 1430. FALL PRECAUTIONS IN PLACE. WILL CONTINUE TO MONITOR AND FOLLOW POC.
--- NOTE | 2020-08-10 14:19 | NUR ---
REPORT CALLED AT 1415 AND GIVEN TO JER SIMON; TRANSPORT TO ARRIVE AT 1430
--- NOTE | 2020-08-10 14:24 | NUR ---
CARE TEAM INDICATED THAT PT IS MEDICALLY STABLE TO DC BACK TO [facility] THIS DAY WITH HOSPICE SERVICES. CM CALLED AND SPOKE WITH PT'S SON THIS AM AND HE IS AWARE AND AGREEABLE. CM SPOKE WITH IRENA IN ADMISSIONS AT FACILITY AND THEY ARE ABLE TO ACCEPT PT BACK THIS DAY. REFERRAL SENT TO [facility]. THEY ARE TO HAVE NURSE AT FACILITY TO ADMIT UPON HIS RETURN THIS DAY. TRANSPORT ARRANGED FOR 1430. CHART COPY ORDERED. ORDERS FAXED. REPORT CALLED. OUT OF HOSPITAL DNR FORM COMPLETED. NO OTHER CM INTERVENTION INDICATED. CASE CLOSED.
== END 2020-08-10 15:00 | disposition hospice, home (50) | DRG 177 ==
LOC: TBA 19:37 → 3W 21:10 → 4W 08-08 05:09
PROVIDERS: Nurse Practitioner Family; Psychiatry & Neurology Psychiatry; ADMIT Hospitalist; ATTEND Hospitalist
DX: J69.0 Pneumonitis due to inhalation of food and vomit (principal); J96.01 Acute respiratory failure with hypoxia; F23 Brief psychotic disorder; J44.0 Chronic obstructive pulmonary disease with (acute) lower respiratory infection; Z20.828 Contact with and (suspected) exposure to other viral communicable diseases; F31.9 Bipolar disorder, unspecified; F03.90 Unspecified dementia, unspecified severity, without behavioral disturbance, psychotic disturbance, mood disturbance, and anxiety; K21.9 Gastro-esophageal reflux disease without esophagitis; F17.210 Nicotine dependence, cigarettes, uncomplicated; Z66 Do not resuscitate; L05.91 Pilonidal cyst without abscess; F01.50 Vascular dementia, unspecified severity, without behavioral disturbance, psychotic disturbance, mood disturbance, and anxiety; E53.8 Deficiency of other specified B group vitamins; Z51.5 Encounter for palliative care; L89.892 Pressure ulcer of other site, stage 2; R41.0 Disorientation, unspecified; Z71.6 Tobacco abuse counseling; Z79.899 Other long term (current) drug therapy
CPT/HCPCS: 10045; 10879